=== PATIENT | male | born 2005 | race Caucasian/White ===

== ENCOUNTER 2025-07-12 12:12 | Outpatient (CLI) | payer OTHER, SELFPAY ==
--- NOTE | ~2025-07-12 | XR_ITS ---
EXAMINATION: XR hand LT min 3V DATE: 07/12/2025 12:47 INDICATION: Posttraumatic left hand pain TECHNIQUE: Posteroanterior, oblique and lateral views of the left hand were obtained. COMPARISON: None. FINDINGS: Mildly comminuted extra-articular fracture of the distal diaphysis of the left fifth metacarpal. There is minimal displacement aside from 50 degree palmar angulation. No other fractures identified. Joint spaces are normal. Soft tissue swelling at the ulnar side of the hand. IMPRESSION: 1. 15 degrees palmar angulation of an extra articular diaphyseal fracture of the left fifth metacarpal. Reviewed, dictated and finalized at location A. [employer] IMPRESSION: 1. 15 degrees palmar angulation of an extra articular diaphyseal fracture of th e left fifth metacarpal.
== END 2025-07-12 12:13 | disposition home or self-care (01) ==
PROVIDERS: PCP Pediatrics Adolescent Medicine; Visit Provider Nurse Practitioner Family
DX: S62.327A Displaced fracture of shaft of fifth metacarpal bone, left hand, initial encounter for closed fracture (principal); X58.XXXA Exposure to other specified factors, initial encounter
CPT/HCPCS: 73130